=== PATIENT | male | born 1990 | race American Indian/Alaskan Native ===

== ENCOUNTER 2017-03-10 01:26 | Emergency (ER) | payer OTHER ==
[2017-03-10] MEDS ORDERED: Iopamidol 612 MG/ML 100 ML Bottle IVPUSH ONE (01:37)
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
[2017-03-10 01:57] LABS: CHLORIDE,CL 110 mmol/L (101-111); SODIUM,NA 145 mmol/L (135-145)
== END 2017-03-10 03:22 | disposition home or self-care (01) ==
LOC: DL.ED 01:26
DX: S00.83XA Contusion of other part of head, initial encounter (principal); S20.212A Contusion of left front wall of thorax, initial encounter; S70.12XA Contusion of left thigh, initial encounter; S80.11XA Contusion of right lower leg, initial encounter; S50.12XA Contusion of left forearm, initial encounter; S00.81XA Abrasion of other part of head, initial encounter; S30.811A Abrasion of abdominal wall, initial encounter; V89.2XXA Person injured in unspecified motor-vehicle accident, traffic, initial encounter
CPT/HCPCS: 36415; 70450; 71260; 72125; 72128; 74177; 80053; 80305; 81001; 82150; 83690; 85025; 85610; 85730; 99285; G0480; Q9967

== ENCOUNTER 2018-10-20 06:16 | Emergency (ER) | payer MEDICAID, OTHER ==
[2018-10-20 05:29] VITALS: BP 116/77
[2018-10-20] MEDS: Lidocaine 1% with EPINEPHrine 1:100,000 20 ML MDV INJECT ONE (05:44)
[2018-10-20 05:51] LABS: ANION GAP 16.9; CHLORIDE,CL 105 mmol/L (101-111); SODIUM,NA 139 mmol/L (135-145)
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
[2018-10-20] MEDS: Bacitracin Oint 1 GM U/D Packet TOP ONE (06:27)
== END 2018-10-20 07:49 | disposition home or self-care (01) ==
LOC: DL.ED 06:16
DX: S61.512A Laceration without foreign body of left wrist, initial encounter (principal); F17.210 Nicotine dependence, cigarettes, uncomplicated; Z88.1 Allergy status to other antibiotic agents; W26.8XXA Contact with other sharp object(s), not elsewhere classified, initial encounter
CPT/HCPCS: 12002; 36415; 80053; 80305; 82150; 83690; 85025; 99284; G0480; 12011

== ENCOUNTER 2018-12-07 00:09 | Emergency (ER) | payer OTHER ==
[2018-12-07 00:25] VITALS: BP 118/82
--- NOTE | 2018-12-07 00:31 | EDM.PDOC ---
ED HPI GENERAL MEDICAL PROBLEM - General Chief Complaint: Abdominal Pain Time Seen by Provider: 12/07/18 00:20 Source of Information: Reports: Patient History Limitations: Reports: No Limitations - History of Present Illness INITIAL COMMENTS - FREE TEXT/NARRATIVE: This 28 yo male patient was brought to the ED by [facility] due to upper abdominal pain. The patient reports his abdominal pain started 5 days ago, but got worse this evening. The patient reports his pain is a sharp pain across his upper abdomen that comes and goes. The patient reports he took 1 dose of ibuprofen earlier with no symptom relief. The patient reports no abdominal surgeries in the past. The patient reports his last drug and ETOH use was last week (just before his symptoms started). The patient reports he called the [facility] today and was advised to come in as a walk in, but the patient did not go to the Clinic. The patient reports he has had intermittent blood in his stool for the past 6 months, but the patient has not been seen for blood in his stool. Onset Date: 12/02/18 Duration: Getting Worse, Intermittent Location: Reports: Abdomen (upper abdomen) Quality: Reports: Ache, Sharp Severity: Severe Improves with: Reports: None Worsens with: Reports: None Context: Reports: Other Treatments [employer]: Reports: NSAIDS Upper Abdominal Pain Score (Numeric/FACES): 10 - Related Data Allergies Allergy/AdvReac Type Severity Reaction Status Date / Time amoxicillin Allergy Cannot Verified 12/07/18 00:13 Remember Home Meds: Home Meds . [No Known Home Meds] 09/26/14 [History] Past Medical History - Past Health History Medical/Surgical History: Denies Medical/Surgical History Psychiatric History: Reports: Addiction, Depression, Suicide Attempt - Past Surgical History Musculoskeletal Surgical History: Reports: Other (See Below) Other Musculoskeletal Surgeries/Procedures:: left arm tendon surgery Social & Family History - Family History Family Medical History: Noncontributory - Caffeine Use Caffeine Use: Reports: Energy Drinks, Soda ED ROS GENERAL - Review of Systems Review Of Systems: ROS reveals no pertinent complaints other than HPI. ED EXAM, GI/ABD - Physical Exam Exam: See Below Exam Limited By: No Limitations General Appearance: Alert, WD/WN, Moderate Distress Eyes: Bilateral: Normal Appearance, EOMI Ears: Normal External Exam, Normal Canal, Hearing Grossly Normal, Normal TMs Nose: Normal Inspection, Normal Mucosa, No Blood Throat/Mouth: Normal Inspection, Normal Lips, Normal Teeth, Normal Gums, Normal Oropharynx, Normal Voice, No Airway Compromise Head: Atraumatic, Normocephalic Neck: Normal Inspection, Supple, Non-Tender, Full Range of Motion Respiratory/Chest: No Respiratory Distress, Lungs Clear, Normal Breath Sounds, No Accessory Muscle Use, Chest Non-Tender Cardiovascular: Normal Peripheral Pulses, Regular Rate, Rhythm, No Edema, No Gallop, No JVD, No Murmur, No Rub GI/Abdominal Exam: Normal Bowel Sounds, Soft, No Organomegaly, No Distention, No Abnormal Bruit, No Mass, Pelvis Stable, Tender (epigastric tenderness to palpation) (Male) Exam: Deferred Rectal (Males) Exam: Deferred Back Exam: Normal Inspection, Full Range of Motion, NT Extremities: Normal Inspection, Normal Range of Motion, Non-Tender, Normal Capillary Refill, No Pedal Edema Psychiatric: Normal Affect, Normal Mood Skin Exam: Warm, Dry, Intact, Normal Color, No Rash Lymphatic: No Adenopathy Course - Vital Signs Last Recorded V/S: Last Vital Signs Temp 20.5 C L 12/07/18 00:10 Pulse 69 12/07/18 00:10 Resp 20 12/07/18 00:10 BP 118/82 12/07/18 00:10 Pulse Ox 100 12/07/18 00:10 - Orders/Labs/Meds Orders: Active Orders 24 hr Category Date Time Status EKG Documentation Completion [RC] URGENT Care 12/07/18 00:10 Active DRUG SCREEN, URINE [URCHEM] Stat Lab 12/07/18 00:10 Ordered UA RFX SETH AND CULT IF INDIC [URIN] Urgent Lab 12/07/18 00:10 Ordered Labs: Laboratory Tests 12/07/18 12/07/18 12/07/18 Range/Units 00:18 00:18 00:18 WBC 8.2 (5.0-10.0) 10^3/uL RBC 4.59 L (4.6-6.2) 10^6/uL Hgb 15.3 (14.0-18.0) g/dL Hct 43.0 (40.0-54.0) % MCV 93.7 (80-100) fL MCH 33.3 (27.0-34.0) pg MCHC 35.6 H (33.0-35.0) g/dL Plt Count 238 D (150-450) 10^3/uL Neut % (Auto) 58.0 (42.2-75.2) % Lymph % (Auto) 35.9 (20.5-50.1) % [place] % (Auto) 5.1 (2-8) % Eos % (Auto) 0.5 L (1.0-3.0) % Baso % (Auto) 0.5 (0.0-1.0) % Sodium (135-145) mmol/L Potassium (3.6-5.0) mmol/L Chloride (101-111) mmol/L Carbon Dioxide (21.0-31.0) mmol/L Anion Gap BUN (7-18) mg/dL Creatinine (0.6-1.3) mg/dL Est Cr Clr Drug Dosing mL/min Estimated GFR (MDRD) BUN/Creatinine Ratio Glucose (74-105) mg/dL Lactic Acid 2.5 H (0.5-2.2) mmol/L Calcium (8.4-10.2) mg/dl Total Bilirubin (0.2-1.0) mg/dL AST (10-42) IU/L ALT (10-60) IU/L Alkaline Phosphatase (42-121) IU/L Troponin I (0.00-0.02) ng/ml Total Protein (6.7-8.2) g/dl Albumin (3.2-5.5) g/dl Globulin Albumin/Globulin Ratio Amylase 33 (28-100) U/L Lipase 47 (22-51) U/L Ethyl Alcohol 2 mg/dL 12/07/18 Range/Units 00:18 WBC (5.0-10.0) 10^3/uL RBC (4.6-6.2) 10^6/uL Hgb (14.0-18.0) g/dL Hct (40.0-54.0) % MCV (80-100) fL MCH (27.0-34.0) pg MCHC (33.0-35.0) g/dL Plt Count (150-450) 10^3/uL Neut % (Auto) (42.2-75.2) % Lymph % (Auto) (20.5-50.1) % [place] % (Auto) (2-8) % Eos % (Auto) (1.0-3.0) % Baso % (Auto) (0.0-1.0) % Sodium 133 L (135-145) mmol/L Potassium 3.4 L (3.6-5.0) mmol/L Chloride 101 (101-111) mmol/L Carbon Dioxide 20.0 L (21.0-31.0) mmol/L Anion Gap 15.4 BUN 18 (7-18) mg/dL Creatinine 1.0 (0.6-1.3) mg/dL Est Cr Clr Drug Dosing 105.45 mL/min Estimated GFR (MDRD) > 60 BUN/Creatinine Ratio 18.00 Glucose 130 H (74-105) mg/dL Lactic Acid (0.5-2.2) mmol/L Calcium 8.6 (8.4-10.2) mg/dl Total Bilirubin 1.5 H (0.2-1.0) mg/dL AST 133 H (10-42) IU/L ALT 56 (10-60) IU/L Alkaline Phosphatase 81 (42-121) IU/L Troponin I < 0.02 (0.00-0.02) ng/ml Total Protein 7.5 (6.7-8.2) g/dl Albumin 4.0 (3.2-5.5) g/dl Globulin 3.5 Albumin/Globulin Ratio 1.14 Amylase (28-100) U/L Lipase (22-51) U/L Ethyl Alcohol mg/dL Meds: Medications Discontinued Medications Generic Name Dose Route Start Last Admin Trade Name Freq PRN Reason Stop Dose Admin Al Hydroxide/Mg Hydroxide 30 ml 12/07/18 01:08 12/07/18 01:30 Gi Cocktail PO 12/07/18 01:09 30 ml ONETIME ONE Administration Iopamidol 100 ml 12/07/18 00:54 12/07/18 01:32 Isovue-300 (61%) IVPUSH 12/07/18 00:55 Not Given ONETIME ONE Iopamidol 75 ml 12/07/18 01:33 12/07/18 01:34 Isovue-300 (61%) IVPUSH 12/07/18 01:34 75 ml ONETIME ONE Administration - Re-Assessments/Exams Free Text/Narrative Re-Assessment/Exam: 12/07/18 01:58 The patient reports symptom improvement after the GI Cocktail. Departure - Departure Time of Disposition: 01:55 Disposition: Home, Self-Care 01 Condition: Fair Clinical Impression: Peptic ulcer - Discharge Information *PRESCRIPTION DRUG MONITORING PROGRAM REVIEWED*: Not Applicable *COPY OF PRESCRIPTION DRUG MONITORING REPORT IN PATIENT JEF: Not Applicable Instructions: Peptic Ulcer, [id number] Forms: ED Department Discharge Care Plan Goals: The patient was advised of the examination, lab and CT results during the visit. The patient was given an oral GI Cocktail and an IV dose of Protonix while in the ED. The patient was discharged with a script for Omeprazole (20 mg ) #30 to take 1 by mouth 30 minutes before eating daily. The patient was encouraged to follow-up with his primary care facility for continued evaluation and further management. If the patient has any additional symptoms or concerns, the patient should either return to the emergency department or visit his primary care facility. - My Orders Last 24 Hours: My Active Orders 12/07/18 00:10 EKG Documentation Completion [RC] URGENT DRUG SCREEN, URINE [URCHEM] Stat UA RFX SETH AND CULT IF INDIC [URIN] Urgent - Assessment/Plan Last 24 Hours: My Active Orders 12/07/18 00:10 EKG Documentation Completion [RC] URGENT DRUG SCREEN, URINE [URCHEM] Stat UA RFX SETH AND CULT IF INDIC [URIN] Urgent
[2018-12-07 00:47] LABS: ANION GAP 15.4; CHLORIDE,CL 101 mmol/L (101-111); SODIUM,NA 133 mmol/L (135-145)
[2018-12-07] MEDS ORDERED: Iopamidol 612 MG/ML 100 ML Bottle IVPUSH ONE (00:54)
[2018-12-07] MEDS ORDERED: GI Cocktail Oral Solution 30 ML PO ONE (01:08)
[2018-12-07] MEDS ORDERED: Iopamidol 612 MG/ML 75 ML Bottle IVPUSH ONE (01:33)
[2018-12-07] MEDS ORDERED: Pantoprazole 40 MG Vial IVPUSH ONE (01:52)
== END 2018-12-07 02:12 | disposition home or self-care (01) ==
LOC: DL.ED 00:09
DX: K27.9 Peptic ulcer, site unspecified, unspecified as acute or chronic, without hemorrhage or perforation (principal); Z88.1 Allergy status to other antibiotic agents
CPT/HCPCS: 36415; 74177; 80053; 82150; 83605; 83690; 84484; 85025; 93005; 96374; 99284; A9270; C9113; G0480; Q9967

== ENCOUNTER 2021-02-13 00:45 | Emergency (ER) | payer MEDICAID ==
[2021-02-13 01:06] VITALS: BP 119/84; PULSE 116
[2021-02-13] MEDS ORDERED: Lactated Ringers 1,000 ML IV ONE (01:25)
[2021-02-13 01:31] LABS: ANION GAP 19.1 mEq/L (7-13); CHLORIDE,CL 107 mmol/L (98-107); SODIUM,NA 144 mmol/L (136-145)
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
[2021-02-13] MEDS ORDERED: Iopamidol 612 MG/ML 100 ML Bottle IVPUSH ONE (01:49)
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
[2021-02-13] MEDS ORDERED: HYDROmorphone 1 MG/ML Syringe IVPUSH ONE (02:08)
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
[2021-02-13] MEDS ORDERED: Lidocaine 1% with EPINEPHrine 1:100,000 20 ML MDV ONE (02:49)
[2021-02-13] MEDS ORDERED: Lidocaine 1% with EPINEPHrine 1:100,000 20 ML MDV INJECT ONE (03:24)
[2021-02-13] MEDS ORDERED: Potassium Chloride 10 MEQ Tab.ER PO ONE (03:24)
== END 2021-02-13 05:31 | disposition home or self-care (01) ==
LOC: DL.ED 00:45
DX: S06.0X0A Concussion without loss of consciousness, initial encounter (principal); S01.01XA Laceration without foreign body of scalp, initial encounter; Z88.0 Allergy status to penicillin; Z72.0 Tobacco use; Y04.2XXA Assault by strike against or bumped into by another person, initial encounter
CPT/HCPCS: 12004; 36415; 70450; 71260; 72125; 72128; 72131; 73560; 74177; 80053; 80307; 85025; 85610; 96374; 99284; A9270; J1170; J7120; Q9967; 99283

== ENCOUNTER 2021-03-15 21:02 | Emergency (ER) | payer MEDICAID ==
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
--- NOTE | 2021-03-15 20:21 | CT ---
PROCEDURE INFORMATION: Exam: CT Head Without Contrast Exam date and time: 03/15/2021 8:02 PM Age: 31 years old Clinical indication: Other: Found unresponsive--unknown reasoning; Additional info: Trauma TECHNIQUE: Imaging protocol: Computed tomography of the head without contrast. Radiation optimization: All CT scans at this facility use at least one of these dose optimization techniques: automated exposure control; mA and/or kV adjustment per patient size (includes targeted exams where dose is matched to clinical indication); or iterative reconstruction. COMPARISON: CT Head wo Cont 02/13/2021 1:21 AM FINDINGS: Brain: Normal. No hemorrhage. Unremarkable white matter. No mass effect. Cerebral ventricles: No ventriculomegaly. Paranasal sinuses: Visualized sinuses are unremarkable. No fluid levels. Mastoid air cells: Visualized mastoid air cells are well aerated. Bones/joints: Unremarkable. No acute fracture. Soft tissues: Soft tissue contusion left mid parietal region at the vertex. IMPRESSION: 1. Soft tissue contusion left mid parietal region at the vertex. No skull fracture. 2. No acute intracranial findings.
--- NOTE | 2021-03-15 20:23 | CT ---
PROCEDURE INFORMATION: Exam: CT Cervical Spine Without Contrast Exam date and time: 03/15/2021 8:02 PM Age: 31 years old Clinical indication: Other: Found unresponsive--unknown reason; Additional info: Trauma TECHNIQUE: Imaging protocol: Computed tomography images of the cervical spine without contrast. Radiation optimization: All CT scans at this facility use at least one of these dose optimization techniques: automated exposure control; mA and/or kV adjustment per patient size (includes targeted exams where dose is matched to clinical indication); or iterative reconstruction. COMPARISON: CT Cervical Spine wo Cont 02/13/2021 1:21 AM FINDINGS: Bones/joints: No acute fracture. Normal alignment. Discs/Spinal canal/Neural foramina: Mild foraminal narrowing on the left at C5 secondary to osteophytic encroachment. Lungs: Lung apices are normal. Soft tissues: Unremarkable. IMPRESSION: No acute findings.
--- NOTE | 2021-03-15 20:24 | CT ---
PROCEDURE INFORMATION: Exam: CT Chest Without Contrast; Diagnostic Exam date and time: 03/15/2021 8:02 PM Age: 31 years old Clinical indication: Other: Found unresponsive, unknown reason; Other: Same; Additional info: Trauma TECHNIQUE: Imaging protocol: Diagnostic computed tomography of the chest without contrast. Radiation optimization: All CT scans at this facility use at least one of these dose optimization techniques: automated exposure control; mA and/or kV adjustment per patient size (includes targeted exams where dose is matched to clinical indication); or iterative reconstruction. COMPARISON: CT Chest Abdomen Pelvis w Cont 02/13/2021 1:21 AM FINDINGS: Lungs: Unremarkable. No consolidation. No masses. Pleural spaces: Unremarkable. No pneumothorax. No pleural effusion. Heart: Unremarkable. No cardiomegaly. No pericardial effusion. Aorta: Unremarkable. No aortic aneurysm. Lymph nodes: Unremarkable. No enlarged lymph nodes. Bones/joints: Unremarkable. No acute fracture. Soft tissues: Unremarkable. IMPRESSION: No acute findings. PROCEDURE INFORMATION: Exam: CT Abdomen And Pelvis Without Contrast Exam date and time: 03/15/2021 8:02 PM Age: 31 years old Clinical indication: Other: Found unresponsive, unknown reason; Other: Same; Additional info: Trauma TECHNIQUE: Imaging protocol: Computed tomography of the abdomen and pelvis without contrast. Radiation optimization: All CT scans at this facility use at least one of these dose optimization techniques: automated exposure control; mA and/or kV adjustment per patient size (includes targeted exams where dose is matched to clinical indication); or iterative reconstruction. COMPARISON: CT Chest Abdomen Pelvis w Cont 02/13/2021 1:21 AM FINDINGS: Liver: Normal. No mass. Gallbladder and bile ducts: Nonobstructive cholelithiasis. No ductal dilation. Pancreas: Normal. No ductal dilation. Spleen: Normal. No splenomegaly. Adrenal glands: Normal. No mass. Kidneys and ureters: Normal. No hydronephrosis. Stomach and bowel: Unremarkable. No obstruction. No mucosal thickening. Appendix: No evidence of appendicitis. Intraperitoneal space: Unremarkable. No free air. No significant fluid collection. Vasculature: Unremarkable. No abdominal aortic aneurysm. Lymph nodes: Unremarkable. No enlarged lymph nodes. Urinary bladder: Unremarkable as visualized. Reproductive: Unremarkable as visualized. Bones/joints: Unremarkable. No acute fracture. Soft tissues: Unremarkable. IMPRESSION: No acute findings. Cholelithiasis
[2021-03-15 20:30] LABS: ANION GAP 12.4 mEq/L (7-13); CHLORIDE,CL 109 mmol/L (98-107); SODIUM,NA 144 mmol/L (136-145)
[2021-03-15 20:35] LABS: ACETAMINOPHEN 0 ug/mL (10-30 (Therapeutic))
[2021-03-15 20:44] LABS: AMPHETAMINES,URINE NEGATIVE (NEGATIVE); BARBITURATES,URINE NEGATIVE (NEGATIVE); BENZODIAZEPINE,URINE NEGATIVE (NEGATIVE); MDMA (ECSTASY), URINE NEGATIVE (NEGATIVE); METHADONE,URINE NEGATIVE (NEGATIVE); METHAMPHETAMINES,URINE POSITIVE (NEGATIVE); OPIATES,URINE NEGATIVE (NEGATIVE); OXYCODONE,URINE NEGATIVE (NEGATIVE); PHENCYCLIDINE,URINE NEGATIVE (NEGATIVE); TCA,URINE NEGATIVE (NEGATIVE)
[2021-03-15] MEDS: Sodium Chloride 0.9% 10 ML Syringe FLUSH PRN (20:49)
[2021-03-15] MEDS: Sodium Chloride 0.9% 1,000 ML IV ONE (20:49)
--- NOTE | 2021-03-16 03:15 | CT ---
PROCEDURE INFORMATION: Exam: CT Thoracic Spine Without Contrast Exam date and time: 03/15/2021 8:02 PM Age: 31 years old Clinical indication: Other: Pain; Additional info: Trauma TECHNIQUE: Imaging protocol: Computed tomography images of the thoracic spine without contrast. Radiation optimization: All CT scans at this facility use at least one of these dose optimization techniques: automated exposure control; mA and/or kV adjustment per patient size (includes targeted exams where dose is matched to clinical indication); or iterative reconstruction. COMPARISON: CT Thoracic Spine wo Cont 02/13/2021 1:21 AM FINDINGS: Vertebrae: No acute fracture. Normal alignment. Discs/Spinal canal/Neural foramina: No significant disc protrusion. No severe spinal canal stenosis. No significant neural foraminal narrowing. Soft tissues: Unremarkable. IMPRESSION: Unremarkable CT Spine.
[2021-03-16 07:19] VITALS: BP 119/85; PULSE 72
== END 2021-03-16 07:50 | disposition home or self-care (01) ==
LOC: DL.ED 21:02
DX: F10.129 Alcohol abuse with intoxication, unspecified (principal); F15.90 Other stimulant use, unspecified, uncomplicated; R74.8 Abnormal levels of other serum enzymes; Y90.8 Blood alcohol level of 240 mg/100 ml or more
CPT/HCPCS: 36415; 70450; 71250; 72125; 72128; 74176; 80053; 80143; 80179; 80305; 80307; 81001; 85025; 87086; 99285; J7030

== ENCOUNTER 2022-10-08 19:46 | Emergency (ER) | payer SELFPAY ==
[2022-10-08 20:15] VITALS: BP 120/93; PULSE 85
[2022-10-08] MEDS ORDERED: Sodium Chloride 0.9% 10 ML Syringe FLUSH PRN (20:16)
[2022-10-08] MEDS ORDERED: Sodium Chloride 0.9% 1,000 ML IV ONE (20:17)
[2022-10-08 21:02] LABS: ANION GAP 17.3 mEq/L (7-13)
== END 2022-10-08 21:23 | disposition home or self-care (01) ==
LOC: DL.ED 19:46
DX: R07.89 Other chest pain (principal); F10.920 Alcohol use, unspecified with intoxication, uncomplicated; Z88.0 Allergy status to penicillin; Z86.16 Personal history of COVID-19; Z72.0 Tobacco use; Y90.8 Blood alcohol level of 240 mg/100 ml or more; W50.1XXA Accidental kick by another person, initial encounter
CPT/HCPCS: 36415; 71045; 80053; 80307; 85025; 99284; J3490; J7030

== ENCOUNTER 2023-02-21 05:02 | Emergency (ER) | payer MEDICAID | END 2023-02-21 05:08 | disposition left against medical advice (07) | LOC: DL.ED 05:02 | DX: Z53.21 Procedure and treatment not carried out due to patient leaving prior to being seen by health care provider (principal) ==

== ENCOUNTER 2023-04-05 20:44 | Emergency (ER) | payer MEDICAID ==
[2023-04-05] MEDS ORDERED: Sodium Chloride 0.9% 10 ML Syringe FLUSH PRN (20:55)
[2023-04-05 21:03] VITALS: BP 120/77; PULSE 95
[2023-04-05 21:05] LABS: HEMATOCRIT 45.4 % (40.0-54.0); MEAN CORPUSCULAR HGB CONC 35.2 g/dL (33.0-35.0); MEAN CORPUSCULAR VOLUME 93.6 fL (80-100); PLATELET COUNT,PLT 193 10^3/uL (150-450); RED BLOOD CELL COUNT 4.85 10^6/uL (4.6-6.2)
[2023-04-05 21:12] LABS: BASOPHILS PERCENT AUTO 0.6 % (0.0-1.0); EOSINOPHILS PERCENT AUTO 0.6 % (1.0-3.0); LYMPHOCYTES PERCENT AUTO 57.6 % (20.5-50.1); MONOCYTES PERCENT AUTO 5.6 % (2-8); NEUTROPHILS PERCENT AUTO 35.6 % (42.2-75.2)
[2023-04-05 21:15] LABS: A/G RATIO 0.9; ALBUMIN 3.6 g/dL (3.4-5.0); ANION GAP 19.2 mEq/L (7-13); BILIRUBIN TOTAL 0.9 mg/dL (0.2-1.0); BUN/CREATININE RATIO 7.6 (No establ ref range); CALCIUM 8.2 mg/dL (8.5-10.1); CREATININE 1.19 mg/dL (0.70-1.30); EST CRCL DRUG DOSING (CG) 90.31 mL/min; MAGNESIUM 2.1 mg/dL (1.8-2.4); POTASSIUM,K 3.2 mmol/L (3.5-5.1); PROTEIN TOTAL,TP 7.4 g/dL (6.4-8.2)
[2023-04-05 21:24] LABS: LYMPHOCYTES PERCENT MAN 53 % (20-50); MONOCYTES PERCENT MAN 7 % (2-8); SEG NEUTROPHILS PERCENT MAN 40 % (42-75)
[2023-04-05] MEDS ORDERED: Potassium Chloride 10 MEQ Tab.ER PO ONE (22:10)
[2023-04-05] MEDS ORDERED: Lidocaine 1% with EPINEPHrine 1:100,000 20 ML MDV INJECT ONE (22:56)
[2023-04-06] MEDS ORDERED: Diphtheria,Pertussis(Acell),Tetanus Vaccine 0.5 ML Syringe IM ONE (00:01)
[2023-04-06] MEDS ORDERED: Bacitracin Oint 1 GM U/D Packet TOP ONE (00:01)
[2023-04-06 00:26] LABS: APPEARANCE,URINE CLEAR (CLEAR); BILIRUBIN,URINE NEGATIVE (NEGATIVE); COLOR,URINE YELLOW (YELLOW); GLUCOSE,URINE NEGATIVE (NEGATIVE); KETONES,URINE NEGATIVE (NEGATIVE); LEUKOCYTE ESTERASE,URINE NEGATIVE (NEGATIVE); NITRITE,URINE NEGATIVE (NEGATIVE); OCCULT BLOOD,URINE TRACE-INTACT (NEGATIVE); PROTEIN,URINE NEGATIVE (NEGATIVE); UROBILINOGEN,URINE 0.2 mg/dL (0.2-1.0)
[2023-04-06 00:31] LABS: AMPHETAMINES,URINE POSITIVE (NEGATIVE); BARBITURATES,URINE NEGATIVE (NEGATIVE); BENZODIAZEPINE,URINE NEGATIVE (NEGATIVE); MDMA (ECSTASY), URINE NEGATIVE (NEGATIVE); METHADONE,URINE NEGATIVE (NEGATIVE); METHAMPHETAMINES,URINE POSITIVE (NEGATIVE); OPIATES,URINE NEGATIVE (NEGATIVE); OXYCODONE,URINE NEGATIVE (NEGATIVE); PHENCYCLIDINE,URINE NEGATIVE (NEGATIVE); TCA,URINE NEGATIVE (NEGATIVE)
[2023-04-06 00:55] LABS: RBC,URINE 0-5 /HPF (0-5)
[2023-04-06 00:56] LABS: AMORPHOUS SEDIMENT,URINE FEW /HPF (NOT SEEN); BACTERIA,URINE FEW /HPF (0-FEW/HPF); EPITHELIAL CELLS,URINE FEW /HPF (NOT SEEN); MUCUS,URINE MODERATE /LPF (NOT SEEN)
== END 2023-04-06 01:02 | disposition left against medical advice (07) ==
LOC: DL.ED 20:44
DX: S01.81XA Laceration without foreign body of other part of head, initial encounter (principal); E87.6 Hypokalemia; F15.10 Other stimulant abuse, uncomplicated; F12.10 Cannabis abuse, uncomplicated; Y04.2XXA Assault by strike against or bumped into by another person, initial encounter; Z88.1 Allergy status to other antibiotic agents
CPT/HCPCS: 12014; 12053; 36415; 70450; 72125; 80053; 80305-QW; 80307; 81001; 83735; 85025; 99284; A9270-GY; J3490

== ENCOUNTER 2023-05-17 07:56 | Emergency (ER) | payer MEDICAID ==
[~2023-05-17 07:56] MED LIST: Tranexamic Acid 1,000 MG/10 ML Vial ONE
[2023-05-17] MEDS ORDERED: Sodium Chloride 0.9% 10 ML Syringe FLUSH PRN (09:21)
[2023-05-17] MEDS ORDERED: Sodium Chloride 0.9% 1,000 ML IV ONE (09:22)
[2023-05-17] MEDS ORDERED: Morphine 2 MG/ML SYRINGE IVPUSH ONE (09:27)
[2023-05-17 09:32] LABS: HEMATOCRIT 33.4 % (40.0-54.0); HEMOGLOBIN 10.6 g/dL (14.0-18.0); MEAN CORPUSCULAR HEMOGLOBIN 32.1 pg (27.0-34.0); MEAN CORPUSCULAR HGB CONC 31.7 g/dL (33.0-35.0); MEAN CORPUSCULAR VOLUME 101.2 fL (80-100); PLATELET COUNT,PLT 106 10^3/uL (150-450); WHITE BLOOD CELL COUNT,WBC 8.5 10^3/uL (5.0-10.0)
[2023-05-17 09:35] LABS: ANION GAP 26.8 mEq/L (7-13); BLOOD UREA NITROGEN,BUN 10 mg/dL (7-18); CALCIUM 8.1 mg/dL (8.5-10.1); CARBON DIOXIDE,CO2 15 mmol/L (21-32); CHLORIDE,CL 109 mmol/L (98-107); CREATININE 1.51 mg/dL (0.70-1.30); GLUCOSE RANDOM 192 mg/dL (70-99); POTASSIUM,K 5.8 mmol/L (3.5-5.1); SODIUM,NA 145 mmol/L (136-145)
[2023-05-17] MEDS ORDERED: EPINEPHrine 1:10,000 1 MG/10 ML Syringe IVPUSH ONE (09:35)
[2023-05-17] MEDS ORDERED: Benzocaine 20% Topical Spray UD MUCMEM ONE (09:37)
[2023-05-17 09:38] LABS: BASOPHILS PERCENT AUTO 0.6 % (0.0-1.0); EOSINOPHILS PERCENT AUTO 0.6 % (1.0-3.0); LYMPHOCYTES PERCENT AUTO 74.2 % (20.5-50.1); MONOCYTES PERCENT AUTO 5.3 % (2-8); NEUTROPHILS PERCENT AUTO 19.3 % (42.2-75.2)
[2023-05-17 09:51] LABS: ESTIMATED GFR 62 mL/min (>=60)
[2023-05-17 10:51] LABS: BAND PERCENT MAN 2 %; LYMPHOCYTES PERCENT MAN 68 % (20-50); MONOCYTES PERCENT MAN 4 % (2-8); SEG NEUTROPHILS PERCENT MAN 26 % (42-75)
== END 2023-05-17 11:41 | disposition expired ==
LOC: DL.ED 07:56
DX: I46.9 Cardiac arrest, cause unspecified (principal); Z88.0 Allergy status to penicillin; Z86.16 Personal history of COVID-19
CPT/HCPCS: 31500; 32551; 36415; 36430; 43752; 51702; 71045; 80048; 85025; 86850; 86900; 86901; 86920; 86922; 92950; 99285; P9016; J3490